=== PATIENT | female | born 1965 | race Hispanic/Latino ===

== ENCOUNTER 2018-06-23 14:05 | Outpatient (CLI) | payer OTHER ==
--- NOTE | 2018-06-23 14:48 | RAD ---
PA AND LATERAL VIEWS OF CHEST: HISTORY: Rheumatoid arthritis with fracture at multiple sites. FINDINGS: The cardiomediastinum is normal. The lungs are expanded without focal areas of consolidation, pneumo thoraces, or pleural effusions. There are degenerative changes in the spine. IMPRESSION: No radiographic evidence of acute cardiopulmonary process. POS: [facility]
== END 2018-06-23 14:06 | disposition home or self-care (01) ==
LOC: BICRAD 14:05
PROVIDERS: ATTEND Internal Medicine Rheumatology
DX: M05.79 Rheumatoid arthritis with rheumatoid factor of multiple sites without organ or systems involvement (principal)
CPT/HCPCS: 71046

== ENCOUNTER 2018-12-24 02:00 | Emergency (ER) | payer OTHER ==
[2018-12-24] MEDS ORDERED: Lidocaine Viscous Sol 2% 15 ml UD Cup ONE (02:06)
== END 2018-12-24 02:23 | disposition home or self-care (01) ==
LOC: ERS 02:00
DX: T16.1XXA Foreign body in right ear, initial encounter (principal); E11.9 Type 2 diabetes mellitus without complications; I10 Essential (primary) hypertension
CPT/HCPCS: 69200

== ENCOUNTER 2019-11-08 15:33 | Outpatient (CLI) | payer OTHER ==
--- NOTE | 2019-11-08 15:48 | RAD ---
XR Chest Pa Lat STANDARD HISTORY: Cough and fever COMPARISON: 06/23/2018 FINDINGS: The heart size is normal. The lungs are well expanded without focal areas of consolidation, pneumothorax or pleural effusions. There are degenerative changes in the spine. The aorta is tortuous.. IMPRESSION: No radiographic evidence of acute cardiopulmonary process.
== END 2019-11-08 15:34 | disposition home or self-care (01) ==
LOC: RAD-FRANK 15:33
PROVIDERS: ATTEND Nurse Practitioner Family
DX: R05 Cough (principal)
CPT/HCPCS: 71046